=== PATIENT | male | born 1965 | race Caucasian/White ===

== ENCOUNTER 2016-08-23 09:27 | Emergency (ER) | payer OTHER, MEDICARE ==
[2016-08-23] MEDS ORDERED: OXYCODONE-ACETAMINOPHEN 5-325 MG TABLET PO ONE ×2 (10:54→16:44)
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
[2016-08-23 11:28] LABS: HEMOGLOBIN 13.9 g/dL (13.5-17.0); HGB HCT DIFFERENCE 0.7; MEAN CORPUSCULAR HGB CONC 33.8 g/dL (32.0-36.0); MEAN CORPUSCULAR VOLUME 98 fl (80-97); RED BLOOD COUNT 4.21 10^6/uL (4.35-5.55); RED CELL DISTRIBUTION WIDTH 14.7 % (11.5-14.0); WHITE BLOOD COUNT 20.9 10^3/uL (4.0-10.5)
[2016-08-23 11:32] LABS: APPEARANCE,URINE CLEAR; BILIRUBIN,URINE NEGATIVE (NEGATIVE); GLUCOSE, URINE NEGATIVE (NEGATIVE); KETONES,URINE NEGATIVE (NEGATIVE); LEUKOCYTE ESTERASE,URINE NEGATIVE (NEGATIVE); NITRITE,URINE NEGATIVE (NEGATIVE); PROTEIN,URINE NEGATIVE (NEGATIVE); URINE SPECIFIC GRAVITY 1.011; UROBILINOGEN,URINE NEGATIVE mg/dL (<2.0)
[2016-08-23 11:48] LABS: BASOPHILS % (MANUAL) 0 % (0-2); EOSINOPHILS % (MANUAL) 0 % (0-6); LYMPHOCYTES % (MANUAL) 8 % (13-45); TOTAL CELLS COUNTED 100
[2016-08-23 11:49] LABS: TOXIC GRANULATION SLIGHT
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
[2016-08-23 13:00] LABS: ALANINE AMINOTRANSFERASE 33 U/L (21-72); ALBUMIN 4.3 g/dL (3.5-5.0); ALKALINE PHOSPHATASE 136 U/L (38-126); ANION GAP 14 (5-19); ASPARTATE AMINO TRANSFERASE 39 U/L (17-59); BILIRUBIN,DIRECT 0.5 mg/dL (0.0-0.4); BILIRUBIN,TOTAL 1.5 mg/dL (0.2-1.3); BLOOD UREA NITROGEN 10 mg/dL (7-20); CALCIUM 9.5 mg/dL (8.4-10.2); CARBON DIOXIDE 31 mmol/L (22-30); CHLORIDE 99 mmol/L (98-107); CREATININE RESULT 0.62 mg/dL (0.52-1.25); GLUCOSE 113 mg/dL (75-110); POTASSIUM 3.6 mmol/L (3.6-5.0); SODIUM 144.2 mmol/L (137-145)
[2016-08-23] MEDS ORDERED: CEFTRIAXONE 1 GM/D5W RTU 50 ML IV ONE (16:44)
[2016-08-23] MEDS ORDERED: PROMETHAZINE HCL 25 MG TABLET PO ONE (16:44)
[2016-08-23 17:52] VITALS: BP 132/81
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
== END 2016-08-23 17:54 | disposition short-term general hospital (02) ==
LOC: ER 09:27
DX: S27.321A Contusion of lung, unilateral, initial encounter (principal); J69.0 Pneumonitis due to inhalation of food and vomit; R52 Pain, unspecified; R05 Cough; F17.200 Nicotine dependence, unspecified, uncomplicated; V87.7XXA Person injured in collision between other specified motor vehicles (traffic), initial encounter
CPT/HCPCS: 36415; 71260; 74177; 80053; 81001; 85025; 87070; 87077; 87186; 87205; 99291

== ENCOUNTER 2017-03-19 06:28 | Inpatient (IN) | payer MEDICARE, MEDICAID ==
[2017-03-19] MEDS: NORMAL SALINE 1000 ML 1,000 ML IV PRN ×6 (07:00→23:07)
[2017-03-19] MEDS ORDERED: CEFTRIAXONE INJ 1000 MG VIAL IV ONE (07:01)
--- NOTE | 2017-03-19 07:01 | ER Document Report ---
ED General - General TRAVEL OUTSIDE OF THE [place] IN LAST 30 DAYS: No <BETHANY CHAVEZ - Last Filed: 03/19/17 07:36> <SCOT MÁRQUEZ - Last Filed: 03/19/17 14:13> - General Chief Complaint: Vision Problem Stated Complaint: EYE SIGHT ISSUES Notes: Patient is a 51-year-old male who comes in with multiple complaints. Patient is a history of a retinal detachment left eye. He said he started noticing on Monday that he is having difficulty with his vision his right eye. Yesterday he started noticing that he was having some hoarseness of his voice and then start having cramping throughout his muscles. He did not start having problems hearing as well. He then started feeling very lightheaded dizzy and unwell. He therefore came to the ER this morning. Upon arrival his blood pressure is 80 /54. Heart rate is normal. Temp in triage was 94.8; however, I had them recheck it is a rectal temp once he is brought back to the room and his rectal temp is normal. Patient denies any history of alcohol abuse. The only drug she is ever used is marijuana. He denies any recent sick contacts. He complains of mild headache. Denies neck stiffness. He denies fevers at home. He says he has some crampy pain throughout the muscles of the abdomen otherwise he has no pain. No diarrhea. Some nausea. No recent trauma. History of thyroid disease. No history of diabetes. (BETHANY CHAVEZ) - Related Data Allergies/Adverse Reactions: No Known Allergies Allergy (Verified 03/19/17 06:33) Home Medications: Current Home Medications Bupropion HCl [Bupropion HCl Sr] 150 mg PO DAILY 03/19/17 [History] Lisinopril 20 mg PO DAILY 03/19/17 [History] Trazodone HCl 100 mg PO PRN PRN 03/19/17 [History] Past Medical History - Social History Smoking Status: Current Every Day Smoker Frequency of alcohol use: None Drug Abuse: Marijuana Family History: Reviewed & Not Pertinent Patient has suicidal ideation: No Patient has homicidal ideation: No - Past Medical History Cardiac Medical History: Reports: Hx Hypertension Renal/ Medical History: Denies: Hx Peritoneal Dialysis Musculoskeltal Medical History: Reports Hx Arthritis Past Surgical History: Reports: Hx Orthopedic Surgery - R heel, biltotal hip Surgery on right wrist for fractured radius this spri. - Immunizations Hx Diphtheria, Pertussis, Tetanus Vaccination: Yes <BETHANY CHAVEZ - Last Filed: 03/19/17 07:36> Review of Systems <BETHANY CHAVEZ - Last Filed: 03/19/17 07:36> <SCOT MÁRQUEZ - Last Filed: 03/19/17 14:13> - Review of Systems Notes: My Normal Review Basic REVIEW OF SYSTEMS: CONSTITUTIONAL : Denies fever. Has had some chills and sweats. EENT: Denies eye, ear, throat, or mouth pain or symptoms. Denies nasal or sinus congestion. CARDIOVASCULAR: Denies chest pain. RESPIRATORY: Denies cough, cold, or chest congestion. Denies shortness of breath, difficulty breathing, or wheezing. GASTROINTESTINAL: Crampy abdominal pain.. Denies nausea, vomiting, or diarrhea. GENITOURINARY: Denies difficulty urinating, painful urination, burning, frequency, or blood in urine. MUSCULOSKELETAL: Diffuse muscle aches. SKIN: Denies rash or skin lesions. NEUROLOGICAL: Patient says he feels that his mind is not right. Complains of blurred vision on the right eye. Complains of tingling sensation throughout his body. ALL OTHER SYSTEMS REVIEWED AND NEGATIVE. (BETHANY CHAVEZ) Physical Exam <BETHANY CHAVEZ - Last Filed: 03/19/17 07:36> <SCOT MÁRQUEZ - Last Filed: 03/19/17 14:13> - Vital signs Vitals: Temp 98.9 F 03/19/17 06:51 - Notes Notes: General Appearance: Well nourished, alert, cooperative, patient is very anxious appearing. Cannot stay still. He is very jittery on exam. Vitals: reviewed, See vital signs table. Head: no swelling or tenderness to the head Eyes: Patient has evidence of previous surgery in the left eye on exam. Patient is full extraocular motion with the right eye but says that his vision is blurred. Mouth: No decreasd moisture Ears: Normal-appearing tympanic membranes bilaterally. Throat: No tonsillar inflammation, No airway obstruction Neck: Supple, no neck tenderness Lungs: No wheezing, No rales, No rhonci, No accessory muscle use, good air exchange bilaterally. Heart: Normal rate, Regular rythm, No murmur, no rub Abdomen: Normal BS, soft, No rigidity, No abdominal tenderness, No guarding, no rebound, no abdominal masses, no organomegaly Extremities: strength 5/5 in all extremities, good pulses in all extremities, no swelling or tenderness in the extremities, no edema. Skin: warm, dry, appropriate color, no rash Neuro: speech clear, oriented x 3, anxious affect, responds appropriately to questions. Cranial nerves II through XII are intact with exception of decreased vision. Patient does move all extremities on his own without difficulty. She does have some global weakness but there is no focality to his weakness. He is not weak on one side of his body versus the other. Gait not tested because patient is weak and unsteady appearing. (BETHANY CHAVEZ) Course - Laboratory Result Diagrams: 03/19/17 06:55 03/19/17 06:55 <BETHANY CHAVEZ - Last Filed: 03/19/17 07:36> - Laboratory Result Diagrams: 03/19/17 06:55 03/19/17 11:25 <SCOT MÁRQUEZ - Last Filed: 03/19/17 14:13> - Re-evaluation Re-evalutation: 03/19/17 07:02 Patient is acutely ill appearing. It is unclear if this is a toxic calls or metabolic cause versus infectious cause versus possible intracranial bleed. I did obtain a CT scan. I will order Rocephin to cover for meningitis until it is clear exactly what may be going on. I think meningitis is less likely. I have ordered an array of labs. I have ordered thyroid studies. I have ordered IV fluids due to the patient's hypotension on presentation. 03/19/17 07:36 Patient's now told the nurse that he was not just marijuana he smoked yesterday. He said it was mixed with something. I went back and asked him questions again. He seems very unclear as to whether or not and if his symptoms started before smoking marijuana or if everything started afterwards. He is not clear on this. We will continue his workup. (BETHANY CHAVEZ) 03/19/17 14:11 No leukocytosis no fever nothing the patient is having meningitis. Laboratory studies do show significant renal failure upon further discussion with the patient states he has not urinated for the last 2 days. Patient's lab work did return positive for cocaine. Patient denies any cocaine abuse. Patient after multiple rounds of IV fluids has had improvement of his hypotension. Patient also states he has had improvement of his visual disturbances that he was having. Very minimal urine output still from Velasquez catheter. CT scan was performed to look for signs of obstruction which was negative. Moving all 4 extremities at this time. Discussed with hospitalist staff requested repeat renal function testing is that we do not have nephrology automobile brakes bonder was that showed decent improvement. At this time I do not see any signs of infectious etiology patient's other will appearance has improved will admit to the hospitalist staff. (SCOT MÁRQUEZ) - Vital Signs Vital signs: Temp Pulse Resp BP Pulse Ox 98.9 F 15 82/62 L 99 03/19/17 06:51 03/19/17 13:01 03/19/17 13:01 03/19/17 13:01 - Laboratory Laboratory results interpreted by me: 03/19/17 03/19/17 03/19/17 06:55 06:55 06:55 RBC 3.93 L MCV 99 H MCH 34.5 H RDW 14.8 H Monocytes % 13.6 H Potassium 3.5 L Chloride 97 L Carbon Dioxide Anion Gap 22 H BUN 52 H Creatinine 11.65 H Est GFR ( Amer) 6 L Est GFR (Non-Af Amer) 5 L Glucose 122 H POC Glucose Calcium Direct Bilirubin 0.9 H ALT 87 H Creatine Kinase 373 H Total Protein 8.4 H Urine Protein Urine Blood Urine Urobilinogen Salicylates < 1.0 L Acetaminophen < 10 L 03/19/17 03/19/17 03/19/17 06:58 10:35 11:25 RBC MCV MCH RDW Monocytes % Potassium Chloride 109 H Carbon Dioxide 19 L Anion Gap BUN 47 H Creatinine 8.86 H Est GFR ( Amer) 8 L Est GFR (Non-Af Amer) 6 L Glucose POC Glucose 125 H Calcium 7.1 L Direct Bilirubin ALT Creatine Kinase Total Protein Urine Protein 100 H Urine Blood MODERATE H Urine Urobilinogen 2.0 H Salicylates Acetaminophen Critical Care Note <BETHANY CHAVEZ - Last Filed: 03/19/17 07:36> - Critical Care Note Total time excluding time spent on procedures (mins): 40 <SCOT MÁRQUEZ - Last Filed: 03/19/17 14:13> - Critical Care Note Comments: Multiple evaluations for hypotension. (SCOT MÁRQUEZ) Discharge <BETHANY CHAVEZ - Last Filed: 03/19/17 07:36> - Discharge Admitting Provider: Hospitalist - [place] [facility] Admitted: [facility] <SCOT MÁRQUEZ - Last Filed: 03/19/17 14:13> - Discharge Clinical Impression: Cocaine use, Marijuana use Hypotension Qualifiers: Hypotension type: unspecified hypotension type Qualified Code(s): I95.9 - Hypotension, unspecified Renal failure Qualifiers: Renal failure chronicity: unspecified chronicity Qualified Code(s): N19 - Unspecified kidney failure Disposition: ADMITTED INPATIENT
[2017-03-19 07:16] LABS: VENOUS BLOOD BASE EXCESS -4.4 mmol/L; VENOUS BLOOD HCO3 21.9 mmol/L (20-32); VENOUS BLOOD PH 7.31 (7.30-7.42)
[2017-03-19 07:21] LABS: ABSOLUTE LYMPHOCYTES (AUTO) 1.4 10^3/uL (0.5-4.7); ABSOLUTE MONOCYTES (AUTO) 1.2 10^3/uL (0.1-1.4); ABSOLUTE NEUT (AUTO) 6.2 10^3/uL (1.7-8.2); BASOPHILS % (AUTO) 0.5 % (0-2); EOSINOPHILS % (AUTO) 0.2 % (0-6); HEMATOCRIT 38.7 % (37.9-51.0); HEMOGLOBIN 13.6 g/dL (13.5-17.0); HGB HCT DIFFERENCE 2.1; LYMPHOCYTES % (AUTO) 15.8 % (13-45); MEAN CORPUSCULAR HEMOGLOBIN 34.5 pg (27.0-33.4); MEAN CORPUSCULAR HGB CONC 35.1 g/dL (32.0-36.0); MEAN CORPUSCULAR VOLUME 99 fl (80-97); MONOCYTES % (AUTO) 13.6 % (3-13); RED BLOOD COUNT 3.93 10^6/uL (4.35-5.55); RED CELL DISTRIBUTION WIDTH 14.8 % (11.5-14.0); SEGMENTED NEUTROPHILS % (AUTO) 69.9 % (42-78); WHITE BLOOD COUNT 8.9 10^3/uL (4.0-10.5)
--- NOTE | 2017-03-19 07:29 | RADIOLOGY REPORT (SQ) ---
EXAM DESCRIPTION: CHEST SINGLE VIEW COMPLETED DATE/TIME: 03/19/2017 7:10 am REASON FOR STUDY: altered mental status COMPARISON: 08/23/2016 EXAM PARAMETERS: NUMBER OF VIEWS: One view. TECHNIQUE: Single frontal radiographic view of the chest acquired. RADIATION DOSE: NA LIMITATIONS: None. FINDINGS: LUNGS AND PLEURA: No opacities, masses or pneumothorax. No pleural effusion. MEDIASTINUM AND HILAR STRUCTURES: No masses. Contour normal. HEART AND VASCULAR STRUCTURES: Heart normal in size. Normal vasculature. BONES: No acute findings. HARDWARE: None in the chest. OTHER: No other significant finding. IMPRESSION: NO ACUTE RADIOGRAPHIC FINDING IN THE CHEST. TECHNICAL DOCUMENTATION: JOB ID: [id number] [employer]- All Rights Reserved
--- NOTE | 2017-03-19 07:29 | RADIOLOGY REPORT (SQ) ---
EXAM DESCRIPTION: CT HEAD WITHOUT COMPLETED DATE/TIME: 03/19/2017 7:05 am REASON FOR STUDY: altered mental status COMPARISON: None. TECHNIQUE: Axial images acquired through the brain without intravenous contrast. Images reviewed wi th bone, brain and subdural windows. Images stored on PACS. All CT scanners at this facility use dose modulation, iterative reconstruction, and/or weight based d osing when appropriate to reduce radiation dose to as low as reasonably achievable (ALARA). [facility]: Dose Right [facility]: CareDose [facility]: Dose Right [facility]: Teradose 4D [facility]: Smart Jigsaw RADIATION DOSE: Up-to-date CT equipment and radiation dose reduction techniques were employed. CTDIv ol: 64.6 mGy. DLP: 2689 mGy-cm. mGy. LIMITATIONS: None. FINDINGS: VENTRICLES: Normal size and contour. CEREBRUM: No masses. No hemorrhage. No midline shift. No evidence for acute infarction. Normal gra y/white matter differentiation. No areas of low density in the white matter. CEREBELLUM: No masses. No hemorrhage. No alteration of density. No evidence for acute infarction. EXTRAAXIAL SPACES: No fluid collections. No masses. ORBITS AND GLOBE: No intra- or extraconal masses. Postsurgical change left lobe. Otherwise unremark able without masses. CALVARIUM: No fracture. PARANASAL SINUSES: Right maxillary sinus mucosal thickening. No air-fluid levels. SOFT TISSUES: No mass or hematoma. OTHER: No other significant finding. IMPRESSION: NO ACUTE INTRACRANIAL IMAGING FINDINGS. CHRONIC PARANASAL SINUS DISEASE. POSTSURGICAL CHANGE LEFT GLOBE. EVIDENCE OF ACUTE STROKE: NO. COMMENT: Quality ID # [id number]: Final reports with documentation of one or more dose reduction techniques (e.g., Automated exposure control, adjustment of the mA and/or kV according to patient size, use of iterative reconstruction technique) TECHNICAL DOCUMENTATION: JOB ID: [id number] [employer]- All Rights Reserved
[2017-03-19 07:34] LABS: ALANINE AMINOTRANSFERASE 87 U/L (21-72); ALBUMIN 4.9 g/dL (3.5-5.0); ALKALINE PHOSPHATASE 92 U/L (38-126); ASPARTATE AMINO TRANSFERASE 49 U/L (17-59); BILIRUBIN,DIRECT 0.9 mg/dL (0.0-0.4); BILIRUBIN,TOTAL 1.3 mg/dL (0.2-1.3); BLOOD UREA NITROGEN 52 mg/dL (7-20); CALCIUM 8.9 mg/dL (8.4-10.2); CARBON DIOXIDE 24 mmol/L (22-30); CHLORIDE 97 mmol/L (98-107); CREATININE RESULT 11.65 mg/dL (0.52-1.25); GLUCOSE 122 mg/dL (75-110); POTASSIUM 3.5 mmol/L (3.6-5.0); TOTAL PROTEIN 8.4 g/dL (6.3-8.2)
[2017-03-19 07:35] LABS: ALCOHOL < 10 mg/dL (NONE DETECTED)
[2017-03-19 07:43] LABS: SODIUM 143.3 mmol/L (137-145)
[2017-03-19 07:49] LABS: ANION GAP 22 (5-19); FREE T3 3.74 pg/mL (2.77-5.27)
[2017-03-19 08:03] LABS: THYROID STIMULATING HORMONE 0.62 uIU/mL (0.47-4.68)
--- NOTE | 2017-03-19 09:22 | RADIOLOGY REPORT (SQ) ---
EXAM DESCRIPTION: CHEST SINGLE VIEW COMPLETED DATE/TIME: 03/19/2017 8:35 am REASON FOR STUDY: hypotension ams COMPARISON: CT chest 08/23/2016 Chest films 08/23/2016, 03/19/2017 EXAM PARAMETERS: NUMBER OF VIEWS: One view. TECHNIQUE: Single frontal radiographic view of the chest acquired. RADIATION DOSE: NA LIMITATIONS: None. FINDINGS: LUNGS AND PLEURA: No opacities, masses or pneumothorax. No pleural effusion. MEDIASTINUM AND HILAR STRUCTURES: No masses. Contour normal. HEART AND VASCULAR STRUCTURES: Heart normal in size. Normal vasculature. BONES: No acute findings. Old healed right lateral rib fractures. HARDWARE: None in the chest. OTHER: No other significant finding. IMPRESSION: NO ACUTE RADIOGRAPHIC FINDING IN THE CHEST. TECHNICAL DOCUMENTATION: JOB ID: [id number] [employer]- All Rights Reserved
[2017-03-19] MEDS ORDERED: NORMAL SALINE 1000 ML 1,000 ML IV ONE ×2 (09:45)
[2017-03-19 10:54] LABS: APPEARANCE,URINE SLIGHTLY-CLOUDY; BILIRUBIN,URINE NEGATIVE (NEGATIVE); GLUCOSE, URINE NEGATIVE (NEGATIVE); KETONES,URINE NEGATIVE (NEGATIVE); LEUKOCYTE ESTERASE,URINE NEGATIVE (NEGATIVE); NITRITE,URINE NEGATIVE (NEGATIVE); PROTEIN,URINE 100 mg/dL (NEGATIVE); URINE SPECIFIC GRAVITY 1.011
--- NOTE | 2017-03-19 11:00 | RADIOLOGY REPORT (SQ) ---
EXAM DESCRIPTION: CT LTD RENAL STONE PROTOCOL ON COMPLETED DATE/TIME: 03/19/2017 10:29 am REASON FOR STUDY: hypotension renal failure COMPARISON: CT abdomen pelvis 08/23/2016 TECHNIQUE: CT scan of the abdomen and pelvis performed without intravenous or oral contrast. Images reviewed with lung, soft tissue, and bone windows. Reconstructed coronal and sagittal MPR images revi ewed. All images stored on PACS. All CT scanners at this facility use dose modulation, iterative reconstruction, and/or weight based d osing when appropriate to reduce radiation dose to as low as reasonably achievable (ALARA). [facility]: Dose Right [facility]: CareDose [facility]: Dose Right [facility]: Teradose 4D [facility]: Smart [employer] RADIATION DOSE: Up-to-date CT equipment and radiation dose reduction techniques were employed. CTDIv ol: 13.7 mGy. DLP: 700 mGy-cm.mGy. LIMITATIONS: There is streak artifact obscuring fine detail in the bony pelvis from bilateral hip re placements FINDINGS: LOWER CHEST: Old left lower rib fractures. Lung bases are free of focal infiltrates. NON-CONTRASTED LIVER, SPLEEN, ADRENALS: Evaluation limited by lack of IV contrast. No identified sign ificant masses. PANCREAS: No masses. No peripancreatic inflammatory changes. GALLBLADDER: No identified stones by CT criteria. No inflammatory changes to suggest cholecystitis. RIGHT KIDNEY AND URETER: No suspicious masses. Assessment limited by lack of IV contrast. No signif icant calcifications. No hydronephrosis or hydroureter. LEFT KIDNEY AND URETER: No suspicious masses. Assessment limited by lack of IV contrast. No signifi cant calcifications. No hydronephrosis or hydroureter. AORTA AND RETROPERITONEUM: No aneurysm. No retroperitoneal masses or adenopathy. BOWEL AND PERITONEAL CAVITY: No obvious masses or inflammatory changes. No free fluid. APPENDIX: Normal. PELVIS, BLADDER, AND ABDOMINAL WALL:No abnormal masses. No free fluid. Bladder not well seen, decompr essed by a Velasquez catheter BONES: Old bilateral total hip replacements. Multilevel degenerative disc changes throughout the low er thoracic and lumbar spine OTHER: No other significant finding. IMPRESSION: NO SIGNIFICANT OR ACUTE PROCESS IN THE ABDOMEN OR PELVIS. COMMENT: Quality ID # [id number]: Final reports with documentation of one or more dose reduction techniques (e.g., Automated exposure control, adjustment of the mA and/or kV according to patient size, use of iterative reconstruction technique) TECHNICAL DOCUMENTATION: JOB ID: [id number] [facility]- All Rights Reserved
[2017-03-19 11:10] LABS: URINE BARBITURATES SCREEN NEGATIVE; URINE METHADONE SCREEN NEGATIVE; URINE OPIATES LOW NEGATIVE; URINE PHENCYCLIDINE SCREEN NEGATIVE
[2017-03-19 12:05] LABS: ANION GAP 15 (5-19); BLOOD UREA NITROGEN 47 mg/dL (7-20); CALCIUM 7.1 mg/dL (8.4-10.2); CARBON DIOXIDE 19 mmol/L (22-30); CHLORIDE 109 mmol/L (98-107); CREATININE RESULT 8.86 mg/dL (0.52-1.25); GLUCOSE 91 mg/dL (75-110); SODIUM 143.3 mmol/L (137-145)
[2017-03-19] MEDS ORDERED: ONDANSETRON HCL INJ/PF 4 MG/2 ML SDV IV PRN (13:02)
--- NOTE | 2017-03-19 15:01 | EKG REPORT ---
SEVERITY:- ABNORMAL ECG - ATRIAL FIBRILLATION, V-RATE 70-74 LOW VOLTAGE IN FRONTAL LEADS PROLONGED QT INTERVAL : Confirmed by: Wes New 19-Mar-2017 15:00:44
[2017-03-19] MEDS ORDERED: INFLUENZA ADLT QUAD (36MOS+) 2017-18 VAC 0.5 ML SYR IM PRN (17:17)
[2017-03-19] MEDS: BUPROPION HCL 75 MG TABLET PO SCH (23:07)
[2017-03-20 04:02] LABS: ANION GAP 12 (5-19); BLOOD UREA NITROGEN 32 mg/dL (7-20); CALCIUM 7.1 mg/dL (8.4-10.2); CARBON DIOXIDE 20 mmol/L (22-30); CHLORIDE 115 mmol/L (98-107); CREATININE RESULT 2.55 mg/dL (0.52-1.25); GLUCOSE 123 mg/dL (75-110); MAGNESIUM 1.3 mg/dL (1.6-2.3); POTASSIUM 3.5 mmol/L (3.6-5.0); SODIUM 147.1 mmol/L (137-145)
[2017-03-20] MEDS ORDERED: LANSOPRAZOLE 30 MG TAB.RAP.DR PO SCH (06:00)
[2017-03-20] MEDS: NORMAL SALINE 1000 ML 1,000 ML IV PRN (06:20)
[2017-03-20] MEDS ORDERED: POTASSIUM CHLORIDE 10 MEQ TABLET.SA PO ONE (07:59)
[2017-03-20] MEDS: BUPROPION HCL 75 MG TABLET PO SCH (10:17)
[2017-03-20] MEDS: MAGNESIUM SULFATE/D5W 1 GM/100 ML RTUPB IV SCH ×3 (10:22→12:26)
[2017-03-20 12:33] VITALS: BP 117/72
--- NOTE | 2017-03-24 17:47 | PDOC H&P ---
History of Present Illness Admission Date/PCP: 03/19/17 12:54 YUSRA BRYANT MD Patient complains of: Not being able to see History of Present Illness: DANIELA JACKSON is a 51 year old male who presents with complaints of not being able to see. Patient was seen by the eye doctor at which time his pupils were dilated. As a result, patient could not see. Patient presented to the ED and was found to be hypotension with acute renal failure with creatinine of 11. Patient also tested positive for cocaine. Patient is not giving much of any history at the time. His family is at the best side and reports that the patient has not been eating or drinking. Hospitalist was called to admit the patient for acute renal failure. The creatinine was 11. ED was asked to repeat the BMP which showed an improvement of the creatinine to 8. Patient was admitted for aggressive IV fluid hydration and monitoring of his renal function. Past Medical History Cardiac Medical History: Reports: Hypertension Musculoskeltal Medical History: Reports: Arthritis Psychiatric Medical History: Reports: Depression, General Anxiety Disorder Past Surgical History Past Surgical History: Reports: Orthopedic Surgery - R heel, biltotal hip Surgery on right wrist for fractured radius this spri. Social History Lives with: Guardian Smoking Status: Current Every Day Smoker Cigarettes Packs Per Day: 1 Cigars Per Day: 0 Pipes Per Day: 0 Number of Years Smokin Last Time Smoked: 03/19/2017 Frequency of Alcohol Use: Social Drugs: Cocaine, Marijuana Hx Prescription Drug Abuse: No - Advance Directive Resuscitation Status: Full Code Family History Family History: Other - mother denies any medical problems and father in automobile accident. Parental Family History Reviewed: Yes Children Family History Reviewed: Yes Sibling(s) Family History Reviewed.: Yes Medication/Allergy Home Medications: Bupropion HCl [Bupropion HCl Sr] 150 mg PO DAILY 03/19/17 Dorzolamide HCl/Timolol Maleat [Dorzolamide-Timolol Eye Drops] 1 drop OU Q12 09/28 Trazodone HCl 100 mg PO HSP PRN 03/19/17 Allergies/Adverse Reactions: No Known Allergies Allergy (Verified 03/19/17 06:33) Review of Systems Constitutional: PRESENT: anorexia. ABSENT: chills, fever(s), headache(s), weight gain, weight loss Eyes: PRESENT: visual disturbances Ears: ABSENT: hearing changes Cardiovascular: ABSENT: chest pain, dyspnea on exertion, edema, orthropnea, palpitations Respiratory: ABSENT: cough, hemoptysis Gastrointestinal: ABSENT: abdominal pain, constipation, diarrhea, hematemesis, hematochezia, nausea, vomiting Genitourinary: ABSENT: dysuria, hematuria Musculoskeletal: ABSENT: joint swelling Integumentary: ABSENT: rash, wounds Neurological: ABSENT: abnormal gait, abnormal speech, confusion, dizziness, focal weakness, syncope Psychiatric: ABSENT: anxiety, depression, homidical ideation, suicidal ideation Endocrine: ABSENT: cold intolerance, heat intolerance, polydipsia, polyuria Hematologic/Lymphatic: ABSENT: easy bleeding, easy bruising Physical Exam Vital Signs: Vitals Temp 98.5 HR 76 BP 105/77 RR 17 Sat 97 General appearance: PRESENT: no acute distress, thin Head exam: PRESENT: normocephalic Eye exam: ABSENT: scleral icterus Mouth exam: PRESENT: dry mucosa, moist Neck exam: ABSENT: carotid bruit, JVD, lymphadenopathy, thyromegaly Respiratory exam: PRESENT: clear to auscultation adriana. ABSENT: rales, rhonchi, wheezes Cardiovascular exam: PRESENT: RRR. ABSENT: diastolic murmur, rubs, systolic murmur Pulses: PRESENT: normal dorsalis pedis pul Vascular exam: PRESENT: normal capillary refill GI/Abdominal exam: PRESENT: normal bowel sounds, soft. ABSENT: distended, guarding, mass, organolmegaly, rebound, tenderness Rectal exam: PRESENT: deferred Gentrourinary exam: PRESENT: indwelling catheter Extremities exam: PRESENT: full ROM. ABSENT: calf tenderness, clubbing, pedal edema Neurological exam: PRESENT: other - sleeping. ABSENT: motor sensory deficit Psychiatric exam: PRESENT: appropriate affect, normal mood. ABSENT: homicidal ideation, suicidal ideation Skin exam: PRESENT: dry, intact, warm. ABSENT: cyanosis, rash Results Laboratory Results: Impressions: Head CT 03/19/17 06:49 IMPRESSION: NO ACUTE INTRACRANIAL IMAGING FINDINGS. CHRONIC PARANASAL SINUS DISEASE. POSTSURGICAL CHANGE LEFT GLOBE. EVIDENCE OF ACUTE STROKE: NO. Limited or Localized CT 03/19/17 07:58 IMPRESSION: NO SIGNIFICANT OR ACUTE PROCESS IN THE ABDOMEN OR PELVIS. Chest X-Ray 03/19/17 08:08 IMPRESSION: NO ACUTE RADIOGRAPHIC FINDING IN THE CHEST. Assessment & Plan - Diagnosis (1) Renal failure Qualifiers: Renal failure chronicity: acute Qualified Code(s): N19 - Unspecified kidney failure Is this a current diagnosis for this admission?: Yes Plan: This is mostly due to decrease po intake, cocaine use and taking lisinopril and HCTZ. Velasquez in place to monitor strict I.O. Holding all BP meds. Continue IV hydration at 150cc/hr and monitor for improving. Creatinine is alread trending down from 11 to 8. Note the it was 0.62 in August 2016. (2) Vision changes Is this a current diagnosis for this admission?: Yes Plan: Do to pupils being dilated. Patient vision has returned to baseline. (3) Hypotension Qualifiers: Hypotension type: unspecified hypotension type Qualified Code(s): I95.9 - Hypotension, unspecified Is this a current diagnosis for this admission?: Yes Plan: Will continue aggressive hydration. Holding all blood pressure medications. Patient blood pressure is actually trending up. (4) Polysubstance abuse Is this a current diagnosis for this admission?: Yes Plan: Patient uses cocaine, marijuana and smokes. Will investment counselor once no one is at bedside. - Time Time Spent: 30 to 50 Minutes Medications reviewed and adjusted accordingly: Yes Anticipated discharge: Home Within: within 24 hours - Inpatient Certification Medical Necessity: Need For IV Fluids
--- NOTE | 2017-03-24 18:11 | PDOC DISCHARGE SUMMARY ---
General - Admit/Disc Date/PCP Admission Date/Primary Care Provider: 03/19/17 12:54 YUSRA BRYANT MD Discharge Date: 03/20/17 - Discharge Diagnosis (1) Renal failure Is this a current diagnosis for this admission?: Yes (2) Vision changes Is this a current diagnosis for this admission?: Yes (3) Hypotension Is this a current diagnosis for this admission?: Yes (4) Polysubstance abuse Is this a current diagnosis for this admission?: Yes - Additional Information Resuscitation Status: Full Code Discharge Diet: Regular Discharge Activity: Activity As Tolerated Home Medications: Bupropion HCl [Bupropion HCl Sr] 150 mg PO DAILY 03/19/17 Dorzolamide HCl/Timolol Maleat [Dorzolamide-Timolol Eye Drops] 1 drop OU Q12 09/28 Trazodone HCl 100 mg PO HSP PRN 03/19/17 History of Present Illness History of Present Illness: DANIELA JACKSON is a 51 year old male who presents with complaints visual change. Patient found to be hypotensive and in acute renal failure. Hospital Course Hospital Course: Patient presented with vision changes which were expected as his pupil were dilated by the [employer] consultant. What wasnt expected was his acute renal failure with a creatinine in the 11. This quickly improve with aggressive IV hydration. This most likely resulted from a combination of dehydration, cocaine use, HCTZ and lisinopril use. There was no obstruction seen on CT abdomen. Patient hypotension also improved with hydration. Patient did requires oral potassium and IV magnesium replacement prior to discharge. He was give 40mEq of potassium for a level of 3.5 and 3 grams for a magnesium of 1.3. Patient was advised to drink water and not take his blood pressure medications until he follows up with his PCP. Physical Exam Vital Signs: Temp Pulse Resp BP Pulse Ox 98.5 F 76 17 95/60 L 97 03/20/17 11:51 03/20/17 11:51 03/20/17 11:51 03/20/17 11:51 03/20/17 11:51 General appearance: PRESENT: no acute distress, thin Head exam: PRESENT: atraumatic, normocephalic Eye exam: PRESENT: conjunctiva pink, EOMI, PERRLA. ABSENT: scleral icterus Ear exam: PRESENT: normal external ear exam Mouth exam: PRESENT: moist, tongue midline Neck exam: ABSENT: carotid bruit, JVD, lymphadenopathy, thyromegaly Respiratory exam: PRESENT: clear to auscultation adriana. ABSENT: rales, rhonchi, wheezes Cardiovascular exam: PRESENT: RRR. ABSENT: diastolic murmur, rubs, systolic murmur Pulses: PRESENT: normal dorsalis pedis pul Vascular exam: PRESENT: normal capillary refill GI/Abdominal exam: PRESENT: normal bowel sounds, soft. ABSENT: distended, guarding, mass, organolmegaly, rebound, tenderness Rectal exam: PRESENT: deferred Extremities exam: PRESENT: full ROM. ABSENT: calf tenderness, clubbing, pedal edema Neurological exam: PRESENT: alert, awake, oriented to person, oriented to place , oriented to time, oriented to situation, CN II-XII grossly intact. ABSENT: motor sensory deficit Psychiatric exam: PRESENT: appropriate affect, normal mood. ABSENT: homicidal ideation, suicidal ideation Skin exam: PRESENT: dry, intact, warm. ABSENT: cyanosis, rash Results Laboratory Results: 03/20/17 03:32 03/19/17 03/19/17 03/20/17 15:49 21:15 03:32 Creatine Kinase 230 H 231 H 278 H hypoalemmia replaced hypmagnesemia replaced Hypernatremia due to IV fluids Hyperchloremia due to IV fluids. Impressions: Head CT 03/19/17 06:49 IMPRESSION: NO ACUTE INTRACRANIAL IMAGING FINDINGS. CHRONIC PARANASAL SINUS DISEASE. POSTSURGICAL CHANGE LEFT GLOBE. EVIDENCE OF ACUTE STROKE: NO. Limited or Localized CT 03/19/17 07:58 IMPRESSION: NO SIGNIFICANT OR ACUTE PROCESS IN THE ABDOMEN OR PELVIS. Chest X-Ray 03/19/17 08:08 IMPRESSION: NO ACUTE RADIOGRAPHIC FINDING IN THE CHEST. Qualifiers PATEINT BEING DISCHARGED WITH ANY OF THE FOLLOWING DIAGNOSIS?: No Plan Time Spent: Less than 30 Minutes - Patient advised not to take his BP medications until follow up with PCP and until his lab work is repeated.
== END 2017-03-20 13:45 | disposition home or self-care (01) | DRG 684 ==
LOC: ER 06:28 → EH 12:54 → 4N 15:05
PROVIDERS: ADMIT Pediatrics; ATTEND Pediatrics
DX: N17.9 Acute kidney failure, unspecified (principal); E86.0 Dehydration; I95.9 Hypotension, unspecified; F14.90 Cocaine use, unspecified, uncomplicated; F41.1 Generalized anxiety disorder; M19.90 Unspecified osteoarthritis, unspecified site; F32.9 Major depressive disorder, single episode, unspecified; Z96.643 Presence of artificial hip joint, bilateral; F17.210 Nicotine dependence, cigarettes, uncomplicated; F12.90 Cannabis use, unspecified, uncomplicated; H53.8 Other visual disturbances; Z79.899 Other long term (current) drug therapy
CPT/HCPCS: 36415; 70450; 71010; 76380; 80048; 80053; 80307; 81001; 82140; 82550; 82803; 82962; 83605; 83735; 84100; 84439; 84443; 84481; 85025; 87040; 87804; 93005; 93010; 96361; 96365; 99291; J0696; J3475; J7030

== ENCOUNTER 2018-09-20 20:37 | Inpatient (IN) | payer MEDICARE, MEDICAID ==
[2018-09-20] MEDS ORDERED: DIPHENHYDRAMINE HCL 50 MG/ML VIAL IM ONE (22:37)
[2018-09-20] MEDS ORDERED: HALOPERIDOL LACTATE INJ 5 MG/1 ML VIAL IM ONE (22:38)
[2018-09-20] MEDS ORDERED: LORAZEPAM INJ 2 MG/1 ML VIAL IM ONE (22:38)
[2018-09-21] MEDS ORDERED: NORMAL SALINE 1000 ML 1,000 ML IV ONE ×2 (00:49→02:29)
[2018-09-21 01:30] LABS: ABSOLUTE LYMPHOCYTES (AUTO) 1.1 10^3/uL (0.5-4.7); ABSOLUTE MONOCYTES (AUTO) 0.8 10^3/uL (0.1-1.4); ABSOLUTE NEUT (AUTO) 6.6 10^3/uL (1.7-8.2); BASOPHILS % (AUTO) 0.3 % (0-2); EOSINOPHILS % (AUTO) 0.1 % (0-6); HEMATOCRIT 40.2 % (37.9-51.0); HEMOGLOBIN 13.7 g/dL (13.5-17.0); LYMPHOCYTES % (AUTO) 13.2 % (13-45); MEAN CORPUSCULAR HEMOGLOBIN 32.8 pg (27.0-33.4); MEAN CORPUSCULAR HGB CONC 34.2 g/dL (32.0-36.0); MEAN CORPUSCULAR VOLUME 96 fl (80-97); MONOCYTES % (AUTO) 8.9 % (3-13); PLATELET COUNT 203 10^3/uL (150-450); RED BLOOD COUNT 4.18 10^6/uL (4.35-5.55); RED CELL DISTRIBUTION WIDTH 14.3 % (11.5-14.0); SEGMENTED NEUTROPHILS % (AUTO) 77.5 % (42-78); TOTAL CELLS COUNTED % (AUTO) 100 %; WHITE BLOOD COUNT 8.6 10^3/uL (4.0-10.5)
[2018-09-21 01:31] LABS: VENOUS BLOOD BASE EXCESS -1.3 mmol/L; VENOUS BLOOD HCO3 25.5 mmol/L (20-32); VENOUS BLOOD PCO2 51.1 mmHg (35-63); VENOUS BLOOD PH 7.32 (7.30-7.42)
--- NOTE | 2018-09-21 01:35 | RADIOLOGY REPORT (SQ) ---
EXAM DESCRIPTION: XR CHEST 1 VIEW COMPLETED DATE/TME: 09/21/2018 00:50 CLINICAL HISTORY: 53 years Male, hypotension, confusion, AMS COMPARISON: 03/19/17 NUMBER OF VIEWS/TECHNIQUE: 1/AP FINDINGS: Adequate lung volume, clear parenchyma, normal cardiac silhouette, and intact bony thorax. IMPRESSION: No acute cardiopulmonary findings.
[2018-09-21 01:41] LABS: PROTHROMBIN TIME 12.6 SEC (11.4-15.4)
[2018-09-21 02:16] LABS: ALANINE AMINOTRANSFERASE 50 U/L (21-72); ALBUMIN 4.2 g/dL (3.5-5.0); ALKALINE PHOSPHATASE 99 U/L (38-126); ANION GAP 12 (5-19); ASPARTATE AMINO TRANSFERASE 55 U/L (17-59); BILIRUBIN,DIRECT 0.5 mg/dL (0.0-0.4); BILIRUBIN,TOTAL 1.2 mg/dL (0.2-1.3); BLOOD UREA NITROGEN 17 mg/dL (7-20); CALCIUM 9.4 mg/dL (8.4-10.2); CARBON DIOXIDE 25 mmol/L (22-30); CHLORIDE 103 mmol/L (98-107); GLUCOSE 99 mg/dL (75-110); POTASSIUM 3.6 mmol/L (3.6-5.0); SODIUM 139.7 mmol/L (137-145)
[2018-09-21 02:18] LABS: ACETAMINOPHEN < 10 ug/mL (10-30); ALCOHOL < 10 mg/dL (NONE DETECTED); SALICYLATE < 1.0 mg/dL (2.0-20.0)
[2018-09-21 02:27] LABS: APPEARANCE,URINE CLOUDY; BILIRUBIN,URINE SMALL (NEGATIVE); COLOR,URINE AMBER; GLUCOSE, URINE NEGATIVE (NEGATIVE); KETONES,URINE TRACE mg/dL (NEGATIVE); LEUKOCYTE ESTERASE,URINE NEGATIVE (NEGATIVE); NITRITE,URINE NEGATIVE (NEGATIVE); PROTEIN,URINE 100 mg/dL (NEGATIVE); URINE SPECIFIC GRAVITY 1.028
[2018-09-21 02:44] LABS: URINE BARBITURATES SCREEN NEGATIVE; URINE BENZODIAZEPINES SCREEN UNCONFIRMED POSITIVE; URINE COCAINE SCREEN UNCONFIRMED POSITIVE; URINE MARIJUANA (THC) SCREEN NEGATIVE; URINE METHADONE SCREEN NEGATIVE; URINE PHENCYCLIDINE SCREEN NEGATIVE
[2018-09-21] MEDS ORDERED: ARIPIPRAZOLE 5 MG TABLET PO ONE (03:44)
[2018-09-21] MEDS ORDERED: IPRATROPIUM/ALBUTEROL 0.5-2.5 MG/3 ML AMPUL NEB PRN (03:45)
[2018-09-21] MEDS ORDERED: ACETAMINOPHEN 325 MG TABLET PO PRN (03:45)
[2018-09-21] MEDS ORDERED: MAG HYDROX/AL HYDROX/SIMETH SUSP 30 ML UDCUP PO PRN (03:45)
--- NOTE | 2018-09-21 03:48 | ER Document Report ---
Entered by HARRISON DUFFY SCRIBE 09/21/18 0013 Acting as scribe for:AZUL LEUNG DO ED Psych Disorder / Suicide - General Chief Complaint: Psych Problem Stated Complaint: PSYCH EVAL Time Seen by Provider: 09/20/18 22:05 Mode of Arrival: Ambulatory Information source: Patient Notes: Patient is a 53 year old male who presents to the emergency department due to hallucinations and methamphetamine use. According to mother, patient called her at 0530 this morning and complained of hallucinations, general malaise and being off balance. Mother states when she arrived to the patient's home 2 hours later, he stated he was okay. Mother states she brought the patient voluntarily to the hospital after his daughter called this evening and told her he was behaving abnormally. Police and hospital security state the patient attempted to leave and was stumbling and walking into traffic and actively hallucinating. They state when he was brought back into the hospital, he became agitated and had to be handcuffed. Patient is very agitated. He states he has not consumed alcohol in 1 week but reports using methamphetamine for 4 days straight. He states he has not eaten or slept in 4 days. He states he is here because he got into an argument with his daughter. TRAVEL OUTSIDE OF THE [place] IN LAST 30 DAYS: No - Related Data Allergies/Adverse Reactions: No Known Allergies Allergy (Verified 11/04/17 11:07) Past Medical History - General Information source: Patient - History is limited by altered mental status. - Social History Smoking Status: Current Every Day Smoker Cigarette use (# per day): Yes Frequency of alcohol use: Heavy - Reports alcoholism denies use in 7 days Drug Abuse: Methamphetamine Family History: Reviewed & Not Pertinent, Other - mother denies any medical problems and father in automobile accident. - Past Medical History Cardiac Medical History: Reports: Hx Hypertension Musculoskeletal Medical History: Reports Hx Arthritis Psychiatric Medical History: Reports: Hx Depression Past Surgical History: Reports: Hx Orthopedic Surgery - R heel, bilateral hip Surgery on right wrist for fractured radius this - Immunizations Hx Diphtheria, Pertussis, Tetanus Vaccination: Yes Review of Systems - Review of Systems Notes: ROS obtained from family and staff Constitutional: No symptoms reported EENT: No symptoms reported Cardiovascular: No symptoms reported Respiratory: No symptoms reported Gastrointestinal: No symptoms reported Genitourinary: No symptoms reported Male Genitourinary: No symptoms reported Musculoskeletal: No symptoms reported Skin: No symptoms reported Hematologic/Lymphatic: No symptoms reported Neurological/Psychological: See HPI, Hallucinations -: Yes All other systems reviewed and negative Physical Exam - Vital signs Vitals: Temp Pulse Resp BP Pulse Ox 98.4 F 94 18 86/59 L 96 09/21/18 00:49 09/21/18 00:49 09/21/18 00:49 09/21/18 00:49 09/21/18 00:49 Interpretation: Hypotensive - Notes Notes: GENERAL: Alert, agitated. HEAD: Normocephalic, atraumatic. EYES: Pupils equal, round, and reactive to light. Extraocular movements intact. ENT: Oral mucosa moist, tongue midline. NECK: Full range of motion. Supple. Trachea midline. LUNGS: Clear to auscultation bilaterally, no wheezes, rales, or rhonchi. No respiratory distress. HEART: Regular rate and rhythm. No murmurs, gallops, or rubs. EXTREMITIES: Moves all 4 extremities spontaneously. NEUROLOGICAL: Alert and oriented x3. Normal speech. PSYCH: Agitated. Appears to be arguing with someone whom is not there. Pacing, distrustful, angry. SKIN: Warm, profusely diaphoretic, normal turgor. Abrasions to the left wrist are noted from the handcuffs. Course - Re-evaluation Re-evalutation: 09/21/18 03:46 Patient came in agitated, profusely diaphoretic and acutely hallucinating. He would turn around and argue bowl except there was no be standing there. I was concerned about his safety and the safety of other people so he was placed on a 24-hour hold, and due to attempts to elope from the emergency department as well as agitation where he looked like he might injure somebody patient was given Benadryl, Haldol and Ativan. Patient admitted to extensive methamphetamine use and not sleeping for the past 4 days. Denied any other physical symptoms. CBC is actually unremarkable, coags normal, venous blood gas shows slight low pH at 7.32 but grossly unremarkable, CMP shows elevated creatinine at 3.87, lactic acid is normal, direct bilirubin mildly elevated 0.5, CK and CK-MB are both elevated at 518 at 6.36, urinalysis does not show any blood, and no evidence of rhabdomyolysis, urine drug screen shows benzos and cocaine, unable to test for amphetamine due to interfering substances, no salicylates, and acetaminophen or alcohol. Chest x-ray is unremarkable. Patient was initially hypotensive, given to fluid boluses to bring up his pressure, pressure is now doing better. Patient was placed in restraints due to his dangerous behavior. Patient is improving. Discussed with Dr. Shaw who agrees to admit the patient to his service for acute renal failure in the ICU given the four-point restraints. - Vital Signs Vital signs: Temp Pulse Resp BP Pulse Ox 97.4 F 94 19 110/77 97 09/21/18 01:42 09/21/18 00:49 09/21/18 05:31 09/21/18 05:31 09/21/18 05:30 - Laboratory Result Diagrams: 09/21/18 01:15 09/21/18 04:00 Laboratory results interpreted by me: 09/21/18 09/21/18 09/21/18 01:15 01:15 01:15 RBC 4.18 L RDW 14.3 H Creatinine 3.87 H Est GFR ( Amer) 20 L Est GFR (Non-Af Amer) 16 L Direct Bilirubin 0.5 H Creatine Kinase 518 H CK-MB (CK-2) Urine Protein Urine Ketones Urine Bilirubin Urine Urobilinogen Salicylates < 1.0 L Acetaminophen < 10 L 09/21/18 09/21/18 01:15 01:42 RBC RDW Creatinine Est GFR ( Amer) Est GFR (Non-Af Amer) Direct Bilirubin Creatine Kinase CK-MB (CK-2) 6.36 H Urine Protein 100 H Urine Ketones TRACE H Urine Bilirubin SMALL H Urine Urobilinogen 2.0 H Salicylates Acetaminophen - EKG Interpretation by Me Additional EKG results interpreted by me: 09/21/18 03:46 EKG shows sinus rhythm at a rate of 99, normal axis, borderline prolonged QT interval, no ST segment elevations or depressions, global T wave flattening noted per my interpretation. Discharge - Discharge Clinical Impression: Hallucination, Polysubstance abuse Acute renal failure Qualifiers: Acute renal failure type: unspecified Qualified Code(s): N17.9 - Acute kidney failure, unspecified Condition: Fair Disposition: ADMITTED INPATIENT Admitting Provider: Colin (Hospitalist) Unit Admitted: ICU I personally performed the services described in the documentation, reviewed and edited the documentation which was dictated to the scribe in my presence, and it accurately records my words and actions.
[2018-09-21 04:50] LABS: ALANINE AMINOTRANSFERASE 53 U/L (21-72); ALBUMIN 3.5 g/dL (3.5-5.0); ALKALINE PHOSPHATASE 86 U/L (38-126); ANION GAP 9 (5-19); ASPARTATE AMINO TRANSFERASE 57 U/L (17-59); BILIRUBIN,DIRECT 0.4 mg/dL (0.0-0.4); BLOOD UREA NITROGEN 16 mg/dL (7-20); CALCIUM 8.4 mg/dL (8.4-10.2); CARBON DIOXIDE 24 mmol/L (22-30); CHLORIDE 108 mmol/L (98-107); CREATINE KINASE 648 U/L (55-170); GLUCOSE 82 mg/dL (75-110); POTASSIUM 3.5 mmol/L (3.6-5.0); SODIUM 141.4 mmol/L (137-145); TOTAL PROTEIN 6.1 g/dL (6.3-8.2)
[2018-09-21] MEDS: NORMAL SALINE 1000 ML 1,000 ML IV PRN ×2 (05:05→07:30)
--- NOTE | 2018-09-21 06:25 | PDOC H&P ---
History of Present Illness Admission Date/PCP: 09/21/18 03:54 YUSRA DE DIOS MD Patient complains of: Altered mental status History of Present Illness: DANIELA JACKSON is a 53 year old male with a past medical history of hypertension,stage III chronic kidney disease, depression alcohol and polysubstance abuse. Patient presents the emergency room with hallucinations with methamphetamine abuse patient last seen normal 18 hours ago. He is found disheveled abusive, combative requiring four-point restraints he is administered diphenhydramine 50, Ativan 2 mg, Haldol 10 mg. Labs reveal acute on chronic renal failure, hypotension and acute encephalopathy. He is referred to the hospitalist for admission obtunded, arousable to noxious stimuli but unable to provide history. Past Medical History Cardiac Medical History: Reports: Hypertension Musculoskeltal Medical History: Reports: Arthritis Psychiatric Medical History: Reports: Alcohol Dependency, Depression, Substance Abuse, Tobacco Dependency Past Surgical History Past Surgical History: Reports: Orthopedic Surgery - R heel, bilateral hip Surgery on right wrist for fractured radius this Social History Information Source: [facility] Records Smoking Status: Current Every Day Smoker Frequency of Alcohol Use: Social Drugs: Cocaine, Marijuana Hx Prescription Drug Abuse: No - Advance Directive Resuscitation Status: Full Code Family History Family History: Other - mother denies any medical problems and father in automobile accident. Parental Family History Reviewed: No - Unobtainable Children Family History Reviewed: No - Unobtainable Sibling(s) Family History Reviewed.: No - Unobtainable Medication/Allergy Home Medications: Bupropion HCl [Bupropion HCl Sr] 150 mg PO DAILY 03/19/17 Dorzolamide HCl/Timolol Maleat [Dorzolamide-Timolol Eye Drops] 1 drop OU Q12 03/19/17 Trazodone HCl 100 mg PO HSP PRN 03/19/17 Diclofenac Sodium [Voltaren] 100 gm TP QID 30 Days gel..gram. 11/04/17 Oxycodone HCl/Acetaminophen [Percocet 5-325 mg Tablet] 1 tab PO ASDIR PRN #20 tab 11/04/17 Allergies/Adverse Reactions: No Known Allergies Allergy (Verified 11/04/17 11:07) Review of Systems ROS unobtainable: Due to mental status Physical Exam Vital Signs: Temp Pulse Resp BP Pulse Ox 97.4 F 94 19 110/77 97 09/21/18 01:42 09/21/18 00:49 09/21/18 05:31 09/21/18 05:31 09/21/18 05:30 Intake & Output 09/19/18 09/20/18 09/21/18 11:59 11:59 11:59 Intake Total 1999 Balance 1999 Weight 70.8 kg General appearance: PRESENT: disheveled, mild distress, well-developed, well- nourished. ABSENT: cooperative Eye exam: PRESENT: conjunctiva pink, EOMI, PERRLA. ABSENT: scleral icterus Ear exam: PRESENT: normal external ear exam Mouth exam: PRESENT: moist, tongue midline Neck exam: ABSENT: carotid bruit, JVD, lymphadenopathy, thyromegaly Respiratory exam: PRESENT: clear to auscultation adriana. ABSENT: rales, rhonchi, wheezes Cardiovascular exam: PRESENT: RRR. ABSENT: diastolic murmur, rubs, systolic murmur Pulses: PRESENT: normal dorsalis pedis pul Vascular exam: PRESENT: normal capillary refill GI/Abdominal exam: PRESENT: normal bowel sounds, soft. ABSENT: distended, guarding, mass, organolmegaly, rebound, tenderness Rectal exam: PRESENT: deferred Extremities exam: PRESENT: full ROM. ABSENT: calf tenderness, clubbing, pedal edema Neurological exam: PRESENT: altered, CN II-XII grossly intact. ABSENT: oriented to time, oriented to situation, reflexes normal, abnormal gait Psychiatric exam: PRESENT: agitated Skin exam: PRESENT: dry, intact, warm. ABSENT: cyanosis, rash Results Laboratory Results: 09/21/18 01:15 09/21/18 04:00 09/21/18 09/21/18 09/21/18 01:15 01:15 01:15 WBC 8.6 RBC 4.18 L Hgb 13.7 Hct 40.2 MCV 96 MCH 32.8 MCHC 34.2 RDW 14.3 H Plt Count 203 Seg Neutrophils % 77.5 Lymphocytes % 13.2 Monocytes % 8.9 Eosinophils % 0.1 Basophils % 0.3 Absolute Neutrophils 6.6 Absolute Lymphocytes 1.1 Absolute Monocytes 0.8 Absolute Eosinophils 0.0 Absolute Basophils 0.0 VBG pH VBG pCO2 VBG HCO3 VBG Base Excess Sodium 139.7 Potassium 3.6 Chloride 103 Carbon Dioxide 25 Anion Gap 12 BUN 17 Creatinine 3.87 H Est GFR ( Amer) 20 L Est GFR (Non-Af Amer) 16 L Glucose 99 Lactic Acid 1.3 Calcium 9.4 Magnesium Total Bilirubin 1.2 AST 55 ALT 50 Alkaline Phosphatase 99 Ammonia Total Protein 7.0 Albumin 4.2 Urine Color Urine Appearance Urine pH Ur Specific [place] Urine Protein Urine Glucose (UA) Urine Ketones Urine Blood Urine Nitrite Ur Leukocyte Esterase Urine WBC (Auto) Urine RBC (Auto) 09/21/18 09/21/18 09/21/18 01:15 01:15 01:15 WBC RBC Hgb Hct MCV MCH MCHC RDW Plt Count Seg Neutrophils % Lymphocytes % Monocytes % Eosinophils % Basophils % Absolute Neutrophils Absolute Lymphocytes Absolute Monocytes Absolute Eosinophils Absolute Basophils VBG pH 7.32 VBG pCO2 51.1 VBG HCO3 25.5 VBG Base Excess -1.3 Sodium Potassium Chloride Carbon Dioxide Anion Gap BUN Creatinine Est GFR ( Amer) Est GFR (Non-Af Amer) Glucose Lactic Acid Calcium Magnesium 1.8 Total Bilirubin AST ALT Alkaline Phosphatase Ammonia 16.8 Total Protein Albumin Urine Color Urine Appearance Urine pH Ur Specific [place] Urine Protein Urine Glucose (UA) Urine Ketones Urine Blood Urine Nitrite Ur Leukocyte Esterase Urine WBC (Auto) Urine RBC (Auto) 09/21/18 09/21/18 01:42 04:00 WBC RBC Hgb Hct MCV MCH MCHC RDW Plt Count Seg Neutrophils % Lymphocytes % Monocytes % Eosinophils % Basophils % Absolute Neutrophils Absolute Lymphocytes Absolute Monocytes Absolute Eosinophils Absolute Basophils VBG pH VBG pCO2 VBG HCO3 VBG Base Excess Sodium 141.4 Potassium 3.5 L Chloride 108 H Carbon Dioxide 24 Anion Gap 9 BUN 16 Creatinine 3.24 H Est GFR ( Amer) 24 L Est GFR (Non-Af Amer) 20 L Glucose 82 Lactic Acid Calcium 8.4 Magnesium Total Bilirubin 1.0 AST 57 ALT 53 Alkaline Phosphatase 86 Ammonia Total Protein 6.1 L Albumin 3.5 Urine Color PABLO Urine Appearance CLOUDY Urine pH 5.0 Ur Specific [place] 1.028 Urine Protein 100 H Urine Glucose (UA) NEGATIVE Urine Ketones TRACE H Urine Blood NEGATIVE Urine Nitrite NEGATIVE Ur Leukocyte Esterase NEGATIVE Urine WBC (Auto) 25 Urine RBC (Auto) 44 09/21/18 09/21/18 09/21/18 01:15 01:15 04:00 Creatine Kinase 518 H 648 H CK-MB (CK-2) 6.36 H Impressions: Chest X-Ray 09/21/18 00:50 IMPRESSION: No acute cardiopulmonary findings. Assessment and Plan - Diagnosis (1) Acute encephalopathy Is this a current diagnosis for this admission?: Yes Plan: Secondary to stimulant intoxication requiring four-point restraints and s edation. Protecting his airway, moving all 4 extremities, supportive care (2) Rhabdomyolysis Is this a current diagnosis for this admission?: Yes Plan: No acute injury suggestive of compartment syndrome, IV fluid challenge, follow- up total CK and chemistry. Consider bicarb (3) Acute renal failure Qualifiers: Acute renal failure type: unspecified Qualified Code(s): N17.9 - Acute kidney failure, unspecified Is this a current diagnosis for this admission?: Yes Plan: Complicated by hypertension, polysubstance abuse, stage III chronic kidney disease and acute rhabdomyolysis. Nephrology consult if follow-up chemistry significantly worse. (4) Polysubstance abuse Is this a current diagnosis for this admission?: Yes Plan: Mental health consult, supportive care, benzodiazepine as needed - Time Time Spent with patient: 35 or more minutes - Inpatient Certification Medical Necessity: Need Close Monitoring Due to Risk of Patient Decompensation
[2018-09-21] MEDS ORDERED: FOLIC ACID 1 MG TABLET PO ONE (06:30)
[2018-09-21] MEDS ORDERED: THIAMINE HCL 100 MG TABLET PO ONE (07:00)
[2018-09-21] MEDS: HEPARIN SOD (PORCINE) 5,000 UNIT/ML 1 ML SYRINGE SUBCUT SCH ×3 (07:30→22:18)
[2018-09-21] MEDS: DOCUSATE SODIUM 100 MG CAPSULE PO SCH ×2 (10:08→17:50)
--- NOTE | 2018-09-21 22:37 | EKG REPORT ---
SEVERITY:- BORDERLINE ECG - SINUS RHYTHM BORDERLINE T WAVE ABNORMALITIES BORDERLINE PROLONGED QT INTERVAL : Confirmed by: Maki Lara MD 21-Sep-2018 22:36:05
[2018-09-22 04:48] LABS: ABSOLUTE LYMPHOCYTES (AUTO) 1.4 10^3/uL (0.5-4.7); ABSOLUTE MONOCYTES (AUTO) 0.4 10^3/uL (0.1-1.4); BASOPHILS % (AUTO) 0.4 % (0-2); EOSINOPHILS % (AUTO) 0.4 % (0-6); HEMATOCRIT 37.2 % (37.9-51.0); HEMOGLOBIN 12.6 g/dL (13.5-17.0); LYMPHOCYTES % (AUTO) 20.6 % (13-45); MEAN CORPUSCULAR HEMOGLOBIN 32.7 pg (27.0-33.4); MEAN CORPUSCULAR HGB CONC 33.7 g/dL (32.0-36.0); MEAN CORPUSCULAR VOLUME 97 fl (80-97); MONOCYTES % (AUTO) 6.4 % (3-13); PLATELET COUNT 191 10^3/uL (150-450); RED BLOOD COUNT 3.84 10^6/uL (4.35-5.55); SEGMENTED NEUTROPHILS % (AUTO) 72.2 % (42-78); TOTAL CELLS COUNTED % (AUTO) 100 %; WHITE BLOOD COUNT 6.9 10^3/uL (4.0-10.5)
[2018-09-22 05:08] LABS: ALANINE AMINOTRANSFERASE 51 U/L (21-72); ALBUMIN 3.2 g/dL (3.5-5.0); ALKALINE PHOSPHATASE 95 U/L (38-126); ANION GAP 11 (5-19); ASPARTATE AMINO TRANSFERASE 60 U/L (17-59); BILIRUBIN,DIRECT 0.5 mg/dL (0.0-0.4); BILIRUBIN,TOTAL 1.3 mg/dL (0.2-1.3); BLOOD UREA NITROGEN 11 mg/dL (7-20); CALCIUM 8.6 mg/dL (8.4-10.2); CARBON DIOXIDE 21 mmol/L (22-30); CHLORIDE 109 mmol/L (98-107); POTASSIUM 3.6 mmol/L (3.6-5.0); SODIUM 141.1 mmol/L (137-145); TOTAL PROTEIN 5.7 g/dL (6.3-8.2)
[2018-09-22 05:11] LABS: GLUCOSE 42 mg/dL (75-110)
[2018-09-22] MEDS ORDERED: DEXTROSE 50%-WATER 25 GM/50 ML DISP.SYRIN IV ONE ×2 (05:27→05:45)
[2018-09-22] MEDS: HEPARIN SOD (PORCINE) 5,000 UNIT/ML 1 ML SYRINGE SUBCUT SCH ×3 (05:28→21:12)
[2018-09-22] MEDS: THIAMINE HCL 100 MG TABLET PO SCH (09:24)
[2018-09-22] MEDS: FOLIC ACID 1 MG TABLET PO SCH (09:24)
[2018-09-22] MEDS: DOCUSATE SODIUM 100 MG CAPSULE PO SCH ×2 (09:25→17:32)
--- NOTE | 2018-09-22 13:28 | PDOC PROGRESS REPORT ---
Subjective Progress Note for:: 09/22/18 Subjective:: This is a 53 years old male patient with past medical history of alcohol dependency, depression, substance abuse and tobacco presented with altered mental status. Patient presented to the emergency department with hallucination after he used methamphetamine. On arrival patient is hallucinating agitated and combative. He was given Ativan and Haldol. This morning when I seen patient he is awake alert and oriented x4. He has an episode of hypoglycemia. Reason For Visit: SUBSTANCE ABUSE, AMS, INTOXICATION, ARF RHABDOMYOL Physical Exam Vital Signs: Temp Pulse Resp BP Pulse Ox 98.1 F 81 16 121/97 H 97 09/22/18 11:51 09/22/18 11:51 09/22/18 11:51 09/22/18 11:51 09/22/18 11:51 Intake & Output 09/21/18 09/22/18 09/23/18 06:59 06:59 06:59 Intake Total 2000 2000 900 Output Total 650 950 Balance 2000 1350 -50 Weight 71.3 kg 72.9 kg General appearance: PRESENT: no acute distress Head exam: PRESENT: atraumatic Neck exam: ABSENT: carotid bruit, JVD, lymphadenopathy, thyromegaly Respiratory exam: PRESENT: clear to auscultation adriana. ABSENT: rales, rhonchi, wheezes Pulses: PRESENT: normal dorsalis pedis pul GI/Abdominal exam: PRESENT: normal bowel sounds, soft. ABSENT: distended, guarding, mass, organolmegaly, rebound, tenderness Neurological exam: PRESENT: alert, awake, oriented to time, oriented to situation Results Laboratory Results: 09/22/18 03:56 09/22/18 03:56 09/22/18 09/22/18 03:56 03:56 WBC 6.9 RBC 3.84 L Hgb 12.6 L Hct 37.2 L MCV 97 MCH 32.7 MCHC 33.7 RDW 14.0 Plt Count 191 Seg Neutrophils % 72.2 Lymphocytes % 20.6 Monocytes % 6.4 Eosinophils % 0.4 Basophils % 0.4 Absolute Neutrophils 5.0 Absolute Lymphocytes 1.4 Absolute Monocytes 0.4 Absolute Eosinophils 0.0 Absolute Basophils 0.0 Sodium 141.1 Potassium 3.6 Chloride 109 H Carbon Dioxide 21 L Anion Gap 11 BUN 11 Creatinine 0.84 Est GFR ( Amer) > 60 Est GFR (Non-Af Amer) > 60 Glucose 42 L Calcium 8.6 Total Bilirubin 1.3 AST 60 H ALT 51 Alkaline Phosphatase 95 Total Protein 5.7 L Albumin 3.2 L 09/21/18 09/21/18 09/21/18 01:15 01:15 04:00 Creatine Kinase 518 H 648 H CK-MB (CK-2) 6.36 H 09/21/18 09/21/18 09/21/18 04:00 10:16 10:16 Creatine Kinase 544 H CK-MB (CK-2) 7.61 H 6.44 H 09/21/18 09/21/18 16:54 16:54 Creatine Kinase 455 H CK-MB (CK-2) 5.98 H Impressions: Chest X-Ray 09/21/18 00:50 IMPRESSION: No acute cardiopulmonary findings. Assessment and Plan - Diagnosis (1) Acute encephalopathy Is this a current diagnosis for this admission?: Yes Plan: Methamphetamine induced. Resolved. (2) Acute renal failure Is this a current diagnosis for this admission?: Yes Plan: Has resolved (3) Polysubstance abuse Is this a current diagnosis for this admission?: Yes Plan: Patient counseled and encouraged to remain clean and sober.
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
[2018-09-23 04:58] LABS: ABSOLUTE LYMPHOCYTES (AUTO) 1.2 10^3/uL (0.5-4.7); ABSOLUTE MONOCYTES (AUTO) 0.4 10^3/uL (0.1-1.4); ABSOLUTE NEUT (AUTO) 3.6 10^3/uL (1.7-8.2); BASOPHILS % (AUTO) 0.3 % (0-2); EOSINOPHILS % (AUTO) 0.3 % (0-6); HEMATOCRIT 37.5 % (37.9-51.0); HEMOGLOBIN 12.7 g/dL (13.5-17.0); LYMPHOCYTES % (AUTO) 23.6 % (13-45); MEAN CORPUSCULAR HEMOGLOBIN 32.5 pg (27.0-33.4); MEAN CORPUSCULAR HGB CONC 33.8 g/dL (32.0-36.0); MEAN CORPUSCULAR VOLUME 96 fl (80-97); MONOCYTES % (AUTO) 7.1 % (3-13); PLATELET COUNT 191 10^3/uL (150-450); RED CELL DISTRIBUTION WIDTH 14.1 % (11.5-14.0); SEGMENTED NEUTROPHILS % (AUTO) 68.7 % (42-78); TOTAL CELLS COUNTED % (AUTO) 100 %; WHITE BLOOD COUNT 5.2 10^3/uL (4.0-10.5)
[2018-09-23] MEDS: HEPARIN SOD (PORCINE) 5,000 UNIT/ML 1 ML SYRINGE SUBCUT SCH (05:24)
--- NOTE | 2018-09-23 08:13 | PDOC DISCHARGE SUMMARY ---
General - Admit/Disc Date/PCP Admission Date/Primary Care Provider: 09/21/18 03:54 YUSRA DE DIOS MD Discharge Date: 09/23/18 - Discharge Diagnosis (1) Acute encephalopathy Is this a current diagnosis for this admission?: Yes (2) Acute renal failure Is this a current diagnosis for this admission?: Yes (3) Polysubstance abuse Is this a current diagnosis for this admission?: Yes - Additional Information Resuscitation Status: Full Code Home Medications: No Home Medications 09/21/18 History of Present Illness History of Present Illness: DANIELA JACKSON is a 53 year old male with a past medical history of hypertens ion,stage III chronic kidney disease, depression alcohol and polysubstance abuse. Patient presents the emergency room with hallucinations with methamphetamine abuse patient last seen normal 18 hours ago. He is found disheveled abusive, combative requiring four-point restraints he is administered diphenhydramine 50, Ativan 2 mg, Haldol 10 mg. Labs reveal acute on chronic renal failure, hypotension and acute encephalopathy. He is referred to the hospitalist for admission obtunded, arousable to noxious stimuli but unable to provide history. Hospital Course Hospital Course: his is a 53 years old male patient with past medical history of alc ohol dependency, depression, substance abuse and tobacco presented with altered mental status. Patient presented to the emergency department with hallucination after he used methamphetamine. On arrival patient is hallucinating agitated and combative. He was given Ativan and Haldol. This morning patient seen sitting up by the bedside. He is awake alert oriented x4. His mood and affect is appr opriate. Psych states " Patient is cleared from acute psychiatric services. Patient does not meet IVC criteria per [place] GS 122C." Patient advised that and encouraged to quit substance abuse and alcohol. Physical Exam Vital Signs: Temp Pulse Resp BP Pulse Ox 98.0 F 72 16 117/75 96 09/23/18 07:14 09/23/18 07:14 09/23/18 07:14 09/23/18 07:14 09/23/18 07:14 Intake & Output 09/22/18 09/23/18 09/24/18 06:59 06:59 06:59 Intake Total 2000 1717 Output Total 650 950 Balance 1350 767 Weight 72.9 kg 72.5 kg Results Laboratory Results: 09/23/18 04:04 05/11/19 03:56 09/23/18 04:04 WBC 5.2 RBC 3.90 L Hgb 12.7 L Hct 37.5 L MCV 96 MCH 32.5 MCHC 33.8 RDW 14.1 H Plt Count 191 Seg Neutrophils % 68.7 Lymphocytes % 23.6 Monocytes % 7.1 Eosinophils % 0.3 Basophils % 0.3 Absolute Neutrophils 3.6 Absolute Lymphocytes 1.2 Absolute Monocytes 0.4 Absolute Eosinophils 0.0 Absolute Basophils 0.0 09/21/18 09/21/18 09/21/18 01:15 01:15 04:00 Creatine Kinase 518 H 648 H CK-MB (CK-2) 6.36 H 09/21/18 09/21/18 09/21/18 04:00 10:16 10:16 Creatine Kinase 544 H CK-MB (CK-2) 7.61 H 6.44 H 09/21/18 09/21/18 16:54 16:54 Creatine Kinase 455 H CK-MB (CK-2) 5.98 H Impressions: Chest X-Ray 09/21/18 00:50 IMPRESSION: No acute cardiopulmonary findings. Qualifiers - * PATIENT BEING DISCHARGED WITH ANY OF THE FOLLOWING DIAGNOSIS: No Acute Heart Failure Is this a Heart Failure Patient?: No
[2018-09-23 08:53] VITALS: BP 111/72
[2018-09-23] MEDS: FOLIC ACID 1 MG TABLET PO SCH (09:07)
[2018-09-23] MEDS: DOCUSATE SODIUM 100 MG CAPSULE PO SCH (09:07)
[2018-09-23] MEDS: THIAMINE HCL 100 MG TABLET PO SCH (09:08)
== END 2018-09-23 10:17 | disposition home or self-care (01) | DRG 896 ==
LOC: ER 20:37 → EH 09-21 03:54 → ICU 09-21 05:48 → 3S 09-21 17:34
PROVIDERS: ADMIT Internal Medicine; ATTEND Internal Medicine
DX: F15.151 Other stimulant abuse with stimulant-induced psychotic disorder with hallucinations (principal); G92 Toxic encephalopathy; N17.9 Acute kidney failure, unspecified; M62.82 Rhabdomyolysis; F15.10 Other stimulant abuse, uncomplicated; F14.10 Cocaine abuse, uncomplicated; F19.10 Other psychoactive substance abuse, uncomplicated; F10.20 Alcohol dependence, uncomplicated; I12.9 Hypertensive chronic kidney disease with stage 1 through stage 4 chronic kidney disease, or unspecified chronic kidney disease; N18.3 Chronic kidney disease, stage 3 (moderate); M19.90 Unspecified osteoarthritis, unspecified site; F17.210 Nicotine dependence, cigarettes, uncomplicated; Y90.0 Blood alcohol level of less than 20 mg/100 ml
CPT/HCPCS: 36415; 71045; 80053; 80307; 81001; 82140; 82550; 82553; 82803; 82962; 83605; 83735; 85025; 85610; 87040; 87086; 93005; 93010; 96360; 96361; 96372; 99285; J1200; J1630; J1644; J2060; J3490; J7030